=== PATIENT | male | born 1930 | race Caucasian/White ===

== ENCOUNTER 2017-05-26 19:35 | Observation (INO) | payer MEDICARE, OTHER ==
[2017-05-26] MEDS ORDERED: Nitroglycerin 2% Ointment 1 INCH/1 GM Packet ONE (19:59)
[2017-05-26 22:36] LABS: Troponin I 0.019 ng/mL (< 0.028)
[2017-05-26 23:50] VITALS: BMI 24.9
[2017-05-27 01:29] LABS: Troponin I 0.024 ng/mL (< 0.028)
--- NOTE | 2017-05-27 08:42 | HP ---
DATE OF ADMISSION: 05/26/2017 CHIEF COMPLAINT: Altered mental status. HISTORY OF PRESENT ILLNESS: The patient is an 86-year-old male, who was evaluated in [facility] last night for altered mental status and he was admitted to [facility] for further evaluation after the workup did not show significant abnormalities. History joseph braden is very difficult, because the patient is confused. There is nobody else from his family in the room. PAST MEDICAL HISTORY: 1. Glaucoma. 2. Colon cancer. 3. Gout. 4. Vitamin D deficiency. 5. Hyperlipidemia. 6. Hypertension. PAST SURGICAL HISTORY: 1. Colon resection. 2. Appendectomy. ALLERGIES: SULFA. CURRENT MEDICATIONS: Allopurinol 300 mg once a day; timolol maleate drops, ophthalmic 2 drops to ea ch eye, unknown frequency; ergocalciferol 50,000 units, unclear frequency; aspirin 325 mg once a day ; fludrocortisone 0.1 mg once a day; atorvastatin 40 mg once a day; midodrine 10 mg 3 times a day; a nd Pepcid 20 mg once a day. FAMILY HISTORY: Unobtainable, because of patient's mental status. SOCIAL HISTORY AND REVIEW OF SYSTEMS: Unobtainable secondary to patient's altered mental status. PHYSICAL EXAMINATION: VITAL SIGNS: His blood pressure is 133/83, respiratory rate is 18, temperature is 98.2, pulse is 95 beats per minute. HEENT: Head: Atraumatic, normocephalic. Eyes: Pupils responding to light properly. He has some mild redness of the left eye and the left lower lid and mild redness of the left cheek. Oral mucosa is somewhat dry. NECK: Supple, no lymphadenopathy. Thyroid is not palpable. LUNGS: Clear. HEART: S1, S2. Somewhat bradycardic. No S3, no S4. ABDOMEN: Soft, nontender, nondistended, bowel sounds are present, no organomegaly. EXTREMITIES: No clubbing, cyanosis, or edema. He has diminished pulses on both tibialis posterior and dorsalis pedis arteries, similar bilaterally. NEUROLOGICAL EXAMINATION: He knows his name and date of , but that is all. He does not know t he place where he is. He knows his 's name. He does not know the time and day. He is able to move his all 4 extremities. There are not any focal deficits. LABORATORY AND X-RAY FINDINGS: Labs showed sodium of 137, potassium 3.5, chloride 99, CO2 of 26, gl ucose 116, BUN 20, creatinine 1.3, alkaline phosphatase 263, total CK is 444, CK-MB is 1.4, and trop onin 0.030. BNP was 362. CBC: White count of 7.7, hemoglobin 11.8, hematocrit 36.3, and platelet count is 186,000. Urinalysis did not show any acute changes except for 300 mg of protein and the sp ecific gravity was 1.025. He had chest x-ray done in [place], which did not show any abnormalitie s, and the CT scan of the brain did not show any abnormalities. EKG showed sinus bradycardia with f irst-degree AV block. ASSESSMENT AND PLAN: 1. Altered mental status, looks like metabolically induced. I do not see any focal neurological fi ndings to explain that. We will obtain a Neurology consultation with Dr. Garcia. 2. Elevated BNP and indeterminant troponin level at [place] [facility]. The patient had 2 tr oponins done in our hospital and both of them within normal limits. His chest x-ray is not suggesti ng of any congestive heart failure acutely going on at this point. 3. History of colon cancer. 4. Gout. 5. Vitamin D deficiency. 6. Hyperlipidemia. 7. Hypertension. The patient was hypertensive at the time of emergency room visit. He was treated with nitro transdermally and his blood pressure is down to normal range. PLAN: Admission to observation. Condition is fair. Activity: Bed rest and bathroom privileges wi th assistance. IV hep-lock. Neurologic consultation with Dr. Garcia. DVT prophylaxis with Lovenox 4 0 mg subcutaneously every 24 hours and PUD prophylaxis with Pepcid 20 mg twice a day. As far as we know, his code status is FULL at this point and we tried to contact his and confirmed that. We will continue his home medications.
[2017-05-27] MEDS ORDERED: Non-Formulary Item 1 EACH (Famotidine [Famotidine] 20 MG) PO SCH (09:00)
[2017-05-27] MEDS ORDERED: FLU VACC TS2017-18 (>65YR) 0.5 ML SYRINGE IM ONE (09:00)
[2017-05-27] MEDS ORDERED: Non-Formulary Item 1 EACH (Midodrine Hcl [Midodrine Hcl] 10 MG) PO SCH (09:00)
[2017-05-27] MEDS ORDERED: ERGOCALCIFEROL 50000 UNIT PO SCH (09:00)
[2017-05-27] MEDS ORDERED: Ergocalciferol 1.25 MG(50,000 UNITS) CAP PO SCH (09:00)
[2017-05-27] MEDS ORDERED: Famotidine 20 MG TAB PO SCH (09:00)
[2017-05-27] MEDS: Fludrocortisone Acetate 0.1 MG TAB PO SCH ×2 (09:03→09:15)
[2017-05-27] MEDS: Enoxaparin Sodium 40 MG/0.4 ML SYRINGE SC SCH (09:03)
[2017-05-27] MEDS: Atorvastatin Calcium 40 MG TAB PO SCH (09:04)
[2017-05-27] MEDS: Allopurinol 100 MG TAB PO SCH (09:04)
[2017-05-27] MEDS: Midodrine HCl 5 MG TAB PO SCH ×3 (09:08→20:31)
[2017-05-27] MEDS: Aspirin 325 mg Enteric Coated Tablet PO SCH (09:08)
[2017-05-27] MEDS: Acetaminophen 325 MG TAB PO PRN ×2 (09:34→17:57)
[2017-05-27] MEDS: hydrALAZINE 20 MG/ML VIAL SLOW IVP PRN (09:34)
[2017-05-27] MEDS: Brimonidine Tartrate 0.2% Ophth Soln 5 ml Bottle EA EYE SCH ×2 (12:03→20:31)
[2017-05-27] MEDS: Timolol 0.5% Ophth Soln 5 ml Bottle EA EYE SCH ×2 (12:03→20:30)
[2017-05-27] MEDS: Melatonin 3 MG TAB PO PRN (20:30)
--- NOTE | 2017-05-27 23:39 | CON ---
DATE OF CONSULTATION: 05/27/2017 CONSULTING PHYSICIAN: Hospitalist Service. IMPRESSION: 1. Orthostatic hypotension. 2. Dementia. 3. History of stroke with left-sided weakness. PLAN: 1. Monitor orthostatic blood pressures and titrate a combination of Florinef and midodrine as neces tommy to control blood pressure. 2. Family is planning to move them to assisted living facility. HISTORY OF PRESENT ILLNESS: Mr. Evans is an 86-year-old man, who was previously seen by Dr. Garcia . He has had a documented orthostatic hypotension and has had continued problems over the year. He was having several falls this week due to weakness that brought on by hypotension. He did have a g lazed look in his eyes intermittently between these events. He came in for further treatment. His CT scan of the brain only showed some small vessel ischemic changes. Orthostatic blood pressure abisai surements have not been undertaken. PHYSICAL EXAMINATION: GENERAL: The patient is awake, alert, and appropriate. NEUROLOGIC: At this point, he is oriented to person only, but was disoriented to his current locati on and the year. He did know the month. His speech is fluent and clear. His exam showed symmetric facial appearance. He has mild left-sided weakness. Gait was not tested. LABORATORY STUDIES: Reviewed. SUMMARY: Mr. Evans is an elderly gentleman with mild dementia and orthostatic hypotension. We w ill continue to try to work with his current medications to try to bring his blood pressure into a m ore stable situation. Droxidopa is a new medication available for treatment of this if he fails the current therapy.
[2017-05-28 05:36] LABS: #Eosinphils 0.3 thou/uL (0.0-0.7); #Monocytes 0.9 thou/uL (0.11-0.59); #Neutrophils 4.4 thou/uL (1.40-6.50); %Basophils 0.2 % (0.0-1.0); %Eosinophils 4.1 % (0.0-10.0); %Lymphocytes 14.9 % (21.0-51.0); %Monocytes 13.3 % (0.0-10.0); Hematocrit 32.3 % (42.0-52.0); Mean Platelet Volume 7.7 fL (7.4-10.4); Red Blood Cell (RBC) Count 3.34 mill/uL (4.70-6.10); White Blood Cell (WBC) Count 6.5 thou/uL (4.8-10.8)
[2017-05-28 05:59] LABS: Anion Gap 15 mmol/L (10-20); BUN (Urea Nitrogen) 22 mg/dL (8.4-25.7); Calc. Creatinine Clearance 53 mL/min (70-130); Carbon Dioxide 24 mmol/L (23-31); Chloride 100 mmol/L (98-107); Estimated GFR-MDRD 57
[2017-05-28] MEDS: Atorvastatin Calcium 40 MG TAB PO SCH (08:53)
[2017-05-28] MEDS: Aspirin 325 mg Enteric Coated Tablet PO SCH (08:53)
[2017-05-28] MEDS: Acetaminophen 325 MG TAB PO PRN (08:53)
[2017-05-28] MEDS: Allopurinol 100 MG TAB PO SCH (08:53)
[2017-05-28] MEDS: Enoxaparin Sodium 40 MG/0.4 ML SYRINGE SC SCH (08:53)
[2017-05-28] MEDS: Fludrocortisone Acetate 0.1 MG TAB PO SCH (08:54)
[2017-05-28] MEDS: Midodrine HCl 5 MG TAB PO SCH ×3 (08:54→21:35)
[2017-05-28] MEDS: Timolol 0.5% Ophth Soln 5 ml Bottle EA EYE SCH ×2 (08:57→20:26)
[2017-05-28] MEDS: Brimonidine Tartrate 0.2% Ophth Soln 5 ml Bottle EA EYE SCH ×2 (08:57→20:26)
[2017-05-28] MEDS: hydrALAZINE 20 MG/ML VIAL SLOW IVP PRN (20:24)
[2017-05-28] MEDS: Melatonin 3 MG TAB PO PRN (20:26)
--- NOTE | 2017-05-28 20:59 | PRG ---
DATE OF SERVICE: 05/28/2017 SUBJECTIVE: The patient is seen and examined at bedside. He is improved since yesterday. He is st ill presenting with some confusion, but he recognized that he is in the hospital. He thought it was somewhere in [place], but he knows today is Tuesday. He is not able to tell me correctly month an d the year we are in. OBJECTIVE: VITAL SIGNS: Blood pressure is 131/76, pulse is 57, respiratory rate is 20, temperature is 99.1, an d O2 saturation is 95% on room air. HEENT: His head is atraumatic, normocephalic. Pupils are responding to light properly. Sclerae no nicteric. Oral mucosa is moist. NECK: Supple. No lymphadenopathy. Thyroid is not palpable. LUNGS: Clear. HEART: S1, S2 normal. ABDOMEN: Soft, nontender, nondistended. EXTREMITIES: 1+ peripheral edema similar bilaterally. NEUROLOGIC: He is alert and oriented x1. There are not any motor deficits. Cranial nerves are int act. He follows my commands. He moves his all 4 extremities. LABORATORY DATA: Showed a white count of 6.5, hemoglobin 10.2, hematocrit 32.3, platelet count is 1 94. Normal chemistry except for potassium which is 3.4, ammonia 16. IMPRESSION: 1. Altered mental status, which is most likely related to fluctuating dementia. The patient was se en by Dr. Singh, neurologist, who feels that this is related to his dementia, he is at the [facility]. 2. Orthostatic hypotension. He recommends to switch him to droxidopa of this is an issue and he is not responding to current regimen, but so far, he is doing quite well in terms of his blood pressur e. 3. History of cerebrovascular accident in the past. 4. History of colon cancer. 5. Gout. 6. Vitamin D deficiency. 7. Hyperlipidemia. 8. Elevated BNP and indeterminate troponin level at [place] [facility] with 2 normal troponin s in our facility. PLAN: The patient is going to be discharged home. We are waiting for the family to come and discus s his current condition. We will then take him home and as soon as they are here we are going to di scharge him into supervision and for now we are going to continue observation.
[2017-05-29] MEDS: Midodrine HCl 5 MG TAB PO SCH (09:55)
[2017-05-29] MEDS: Aspirin 325 mg Enteric Coated Tablet PO SCH (09:55)
[2017-05-29] MEDS: Atorvastatin Calcium 40 MG TAB PO SCH (09:55)
[2017-05-29] MEDS: Enoxaparin Sodium 40 MG/0.4 ML SYRINGE SC SCH (09:55)
[2017-05-29] MEDS: Fludrocortisone Acetate 0.1 MG TAB PO SCH (09:55)
[2017-05-29] MEDS: Allopurinol 100 MG TAB PO SCH (09:55)
[2017-05-29] MEDS: Acetaminophen 325 MG TAB PO PRN (09:59)
[2017-05-29] MEDS: Timolol 0.5% Ophth Soln 5 ml Bottle EA EYE SCH (09:59)
[2017-05-29] MEDS: Brimonidine Tartrate 0.2% Ophth Soln 5 ml Bottle EA EYE SCH (10:00)
[2017-05-29 12:50] VITALS: BP 168/78; TEMP 98.6
--- NOTE | 2017-05-29 16:38 | DIS ---
DATE OF ADMISSION: 05/27/2017 DATE OF DISCHARGE: 05/29/2017 CONSULTANTS: Dr. Tyson Singh of Neurology Service. FINAL DIAGNOSES: 1. Altered mental status, which is most likely related to his fluctuating dementia. 2. Orthostatic hypotension. He is on fludrocortisone and midodrine, which works pretty good, but i f this does not work, droxidopa would be another choice, new medications on the market. 3. History of cerebrovascular accident. 4. History of colon cancer. 5. Gout. 6. Vitamin D deficiency. 7. Hyperlipidemia. 8. Elevated BNP and indeterminant troponin level at [place] [facility] with two normal tropon in levels in our facility. HOSPITAL COURSE: The patient is an 86-year-old male who was evaluated in [facility] for altered mental status, which showed mild elevation of BNP at 362 and troponin at 1.03. The patient was sent to our facility for further evaluation. He got admitted to the hospital with a diagnosis of altered mental status. Neurology consultation with Dr. Singh was requested. He ev aluated the patient and stated that most likely his altered mental status is related to his dementia and he agreed that the patient should be placed in assisted living facility, also he recommended to monitor orthostatic blood pressure and titrate a combination of Florinef and midodrine as necessary to control blood pressure. The patient did very well. His altered mental status improved to some extent, although he has some baseline abnormality. While in the emergency room in [place], he calle d a lab work done, which showed normal electrolytes, creatinine of 1.3, BUN 20. CBC showed a white count of 7.7, hemoglobin of 11.8, hematocrit 36.3, platelet count was 186, so there was mild anemia. Urinalysis did not show any acute changes except for 300 mg of protein and specific gravity was 1. 025, which was suggestive of some mild dehydration. The chest x-ray did not show any abnormalities and the CT of the brain was negative too. Electrocardiogram showed sinus bradycardia with first-deg ree AV block and today he is discharged home under his son's care. MEDICATIONS AT THE TIME OF DISCHARGE: Allopurinol 100 mg daily, aspirin 325 mg daily, atorvastatin 40 mg at bedtime, ergocalciferol 1.25 mg every 7 days, fludrocortisone 0.1 mg daily, midodrine 10 mg 3 times a day along with his eyedrops, which is timolol maleate 1 drop to each eye twice a day and brimonidine tartrate, which is Alphagan 0.2% ophthalmic solution 1 drop to each eye twice a day. DIET: He is discharged on a cardiac diet. FOLLOWUP: He will follow up with his primary care physician in 1 week and the patient is seen and e xamined before his discharge. Discharge time is less than 30 minutes.
== END 2017-05-29 13:25 | disposition home or self-care (01) ==
LOC: ERS 19:35 → EDSEX 22:20 → 2NO 22:20
PROVIDERS: ADMIT Internal Medicine; ATTEND Internal Medicine
DX: R41.82 Altered mental status, unspecified (principal); I95.1 Orthostatic hypotension; M10.9 Gout, unspecified; E55.9 Vitamin D deficiency, unspecified; E78.5 Hyperlipidemia, unspecified; R79.89 Other specified abnormal findings of blood chemistry; H40.9 Unspecified glaucoma; F03.90 Unspecified dementia, unspecified severity, without behavioral disturbance, psychotic disturbance, mood disturbance, and anxiety; I69.354 Hemiplegia and hemiparesis following cerebral infarction affecting left non-dominant side; I10 Essential (primary) hypertension; Z79.82 Long term (current) use of aspirin; Z79.52 Long term (current) use of systemic steroids; Z79.899 Other long term (current) drug therapy; Z88.2 Allergy status to sulfonamides; Z90.49 Acquired absence of other specified parts of digestive tract; Z91.81 History of falling; Z85.038 Personal history of other malignant neoplasm of large intestine
CPT/HCPCS: 80048; 82140; 82962; 84484 ×2; 85025; 93005; 96372 ×3; 96374; 96376; 99285; G0008; G0378 ×2; Q2036; 36415; 90471; 90682; J0360; J1650